=== PATIENT | female | born 1975 | race Caucasian/White ===

== ENCOUNTER 2019-12-17 12:02 | Outpatient (CLI) | payer OTHER | END 2019-12-17 23:59 | disposition home or self-care (01) | LOC: CFH 12:02 | PROVIDERS: ATTEND Family Medicine | DX: Z12.31 Encounter for screening mammogram for malignant neoplasm of breast (principal); R92.2 Inconclusive mammogram | CPT/HCPCS: 76641; 77063; 77067 ==

== ENCOUNTER 2021-03-30 14:01 | Outpatient (CLI) | payer OTHER | END 2021-03-30 23:59 | disposition home or self-care (01) | LOC: CFH 14:01 | PROVIDERS: ATTEND Family Medicine | DX: Z12.31 Encounter for screening mammogram for malignant neoplasm of breast (principal); Z12.39 Encounter for other screening for malignant neoplasm of breast | CPT/HCPCS: 76641; 77063; 77067 ==